=== PATIENT | female | born 1945 | race Two or more races ===

== ENCOUNTER 2021-11-25 07:07 | Emergency (ER) | payer OTHER ==
[~2021-11-25] VITALS: Ht 163.8 cm; Wt 93.4 kg
[2021-11-25] MEDS ORDERED: LYRICA150 MG PO (07:22)
[2021-11-25] MEDS ORDERED: HYDROCHLOROTHIA25 MG PO (07:23)
[2021-11-25] MEDS ORDERED: SYNTHROID50 MCG (07:23)
[2021-11-25] MEDS ORDERED: SIMVASTATIN20 MG PO (07:24)
== END 2021-11-25 12:08 ==
LOC: ER 07:07
DX: M54.50 Low back pain, unspecified (principal); I10 Essential (primary) hypertension